=== PATIENT | female | born 2000 | race Caucasian/White ===

== ENCOUNTER 2025-10-06 21:45 | Emergency (ER) | payer SELFPAY ==
[2025-10-06 21:45] VITALS: BP 130/70; PULSE 67; RESP 18; TEMP 36.8; O2SAT 96; BMI 37.3
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
--- NOTE | 2025-10-06 22:03 | CTR_ITS ---
PROCEDURE INFORMATION: Exam: CT Head Without Contrast Exam date and time: 10/06/2025 10:44 PM Age: 25 years old Clinical indication: Condition or disease; Convulsions or seizures; EMS arrival for seizure. History of seizure disorder. TECHNIQUE: Imaging protocol: Computed tomography of the head without contrast. Total images: 289 Radiation optimization: All CT scans at this facility use at least one of these dose optimization techniques: automated exposure control; mA and/or kV adjustment per patient size (includes targeted exams where dose is matched to clinical indication); or iterative reconstruction. COMPARISON: No relevant prior studies available. RADIATION DOSE METRICS: Total DLP (mGy-cm): 1074.38 FINDINGS: Brain: Brain parenchyma demonstrates no unexpected involutional change or volume loss. Deep white matter attenuation is normal for patient of this age. No specific abnormal density within the brain parenchyma. No mass-effect or edema, or pathologic shift of midline structures. No acute intracranial hemorrhage. Satisfactory humphrey-white matter differentiation. Normal anatomy of the posterior fossa, cerebellum, jessica and medulla. Cerebral ventricles: CSF spaces demonstrate mild generalized enlargement of the ventricles, cisterns and other subarachnoid spaces commensurate with patient's age. Paranasal sinuses: Sinus mild mucoperiosteal thickening of the left for posterior visualized portion of maxillary sinus. Sinuses otherwise clear. Mastoid air cells: Visualized mastoid air cells and tympanic cavities are clear. Bones: No intrinsic osseous abnormality identified. Soft tissues: Soft tissues are normal as visualized, demonstrating no masses or swelling/induration. No localized pathologic scalp posttraumatic soft tissue swelling or subcutaneous emphysema. No manifestations of laceration, subcutaneous emphysema or unexpected retained soft tissue radiopaque foreign body. Vasculature: Satisfactory major vessel density and caliber characteristic of flowing intravascular blood. CT/CT head wo con* [id number] IMPRESSION: No acute intracranial abnormalities identified. Specifically no CT evidence of mass, hemorrhage, or acute infarction. COMMENTS: Noncontrast CT has limited sensitivity for early ischemic change or migrainous white matter findings. If clinically indicated, consider MRI brain without contrast.
--- NOTE | 2025-10-06 22:04 | ED_ITS ---
HPI - Seizure 2 General: Chief Complaint: Seizure Stated Complaint: possible seizure Time Seen by Provider: 10/06/25 22:01 History of Present Illness: HPI Narrative: Patient is a 25-year-old female with history of epilepsy, last seizure 3 years ago, that was lost to insurance, no follow-up, presents to the emergency room with tonic-clonic seizure x 15 minutes. She was dazed. She was confused. She does not remember the seizure. She did not have incontinence. She was brought in by EMS. Her hpxlxy-lg-qiq noted tonic-clonic movements, her eyes rolled back of her head, unresponsive, x 15 minutes. At bedside, she was dazed on arrival. Via EMS. She does have establishment by a neurologist however was lost to follow-up due to lack of insurance. Associated symptoms: Reports confusion; Deny chest pain, chills or fever(s) Related Data Previous Rx's ?Medication ?Instructions ?Recorded levetiracetam 1,000 mg tablet 1,000 mg PO Q12H 30 days #60 tabs 10/06/25 (Keppra) Allergies Allergy/AdvReac Type Severity Reaction Status Date / Time morphine Allergy ALGY-Rash Verified 10/06/25 21:51 Review of Systems 2 General: Reports: 10 or more systems reviewed and unremarkable except in HPI and below Const: Denies: fever(s) or chills Eyes: Denies: change in vision or blurry vision ENMT: Denies: throat pain or mouth pain Card: Denies: chest pain or palpitations Resp: Denies: dyspnea or non-productive cough GI: Denies: abdominal pain, nausea or vomiting : Denies: flank pain or dysuria Musc: Denies: neck pain, back pain or extremity pain Neuro: Reports: confusion and seizure-like activity; Denies: weakness in extremities, sensory changes, lack of coordination or dizziness Physical Exam 2 Const: COMMON NORMALS: no acute distress, average body habitus and patient oriented x3 HENMT: COMMON NORMALS: normocephalic and atraumatic HEAD & SCALP: n ormocephalic and atraumatic Chest: COMMONS NORMALS: normal inspection of the chest and normal palpation of entire chest wall Resp: COMMON NORMALS: normal respiratory effort, No retractions, No use of accessory muscles and clear to auscultation bilaterally AUSCULTATION: clear to auscultation bilaterally Cardio: COMMON NORMALS: regular rate and regular rhythm RATE: regular rate RHYTHM: regular rhythm GI: COMMON NORMALS: Normal to inspection, nondistended, normoactive bowel sounds present, Soft to palpation, non-tender and No hepatosplenomegaly present PALPATION: Yes Soft to palpation and Yes No hepatosplenomegaly present : COMMON NORMALS: Yes no CVA tenderness BLADDER/KIDNEY EXAM: Yes no CVA tenderness Back/Pelvis: COMMON NORMALS: no CVA tenderness and thoracic and lumbar spine normal to inspection Extremity: COMMON NORMALS: normal to inspection, full ROM and capillary refill normal Neuro: COMMON NORMALS: patient oriented x3 Psych: COMMON NORMALS: mental status grossly normal, Normal thought process present and cooperative THOUGHT PROCESS: Normal thought process present Course 2 Reevaluation(s): Reevaluation #1: Improved. Vital Signs: Vital signs: Vital Signs Temperature 98.2 F 10/06/25 21:45 Pulse Rate 72 10/06/25 23:41 Respiratory Rate 18 10/06/25 23:41 Blood Pressure 114/53 10/06/25 23:41 Pulse Oximetry 96 10/06/25 23:41 MDM - Seizure MDM Narrative Medical decision making narrative: Patient is a 25-year-old female that reports to the emergency room via EMS due to witnessed seizure activity. She has a history of epilepsy, however did not have her medications due to lack of insurance. Patient was dazed when I first met her, however her neuro was intact. She was loaded on Keppra. Keppra will be sent to the pharmacy. All of her questions answered to her understanding. She has a plan to add be added to her 's insurance on Wednesday. Lab Data 10/06/25 22:21 10/06/25 22:21 Labs: Radiology Impressions Head CT 10/06/25 22:03 IMPRESSION: No acute intracranial abnormalities identified. Specifically no CT evidence of mass, hemorrhage, or acute infarction. COMMENTS: Noncontrast CT has limited sensitivity for early ischemic change or migrainous white matter findings. If clinically indicated, consider MRI brain without contrast. Laboratory Results WBC 8.09 10^3/uL (3.29-11.43) 10/06/25 22:21 RBC 4.23 10^6/uL (3.85-5.65) 10/06/25 22:21 Hgb 13.20 g/dL (11.27-16.99) 10/06/25 22:21 Hct 38.9 % (36-47) 10/06/25 22:21 MCV 92.0 fl (85-98) 10/06/25 22:21 MCH 31.2 pg (27-33) 10/06/25 22:21 MCHC 33.9 g/dL (30-55) 10/06/25 22:21 RDW 11.6 % (12.1-15.1) L 10/06/25 22:21 Plt Count 303 10^3/cmm (157-399) 10/06/25 22:21 MPV 9.5 fL (7.4-10.4) 10/06/25 22:21 Neut % (Auto) 71.5 % 10/06/25 22:21 Lymph % (Auto) 22.0 % 10/06/25 22:21 [place] % (Auto) 5.4 % 10/06/25 22:21 Eos % (Auto) 0.5 % 10/06/25 22:21 Baso % (Auto) 0.4 % 10/06/25 22:21 Neut # (Auto) 5.78 10^3/uL (1.8-7.7) 10/06/25 22:21 Lymph # (Auto) 1.8 10^3/uL (0.8-4.8) 10/06/25 22:21 [place] # (Auto) 0.4 10^3/uL (0.2-0.9) 10/06/25 22:21 Eos # (Auto) 0.0 10^3/uL (0.0-0.8) 10/06/25 22:21 Baso # (Auto) 0.0 10^3/uL (0.0-0.1) 10/06/25:21 Nucleated RBC % (auto) 0 % 10/06/25: Nucleated RBCs # 0.0 /100WBC 10/06/25 22:21 Sodium 138 mmol/L (136-145) 10/06/25 22:21 Potassium 3.7 mmol/L (3.5-5.1) 10/06/25 22:21 Chloride 101 mmol/L (98-107) 10/06/25 22:21 Carbon Dioxide 29 mmol/L (22-29) 10/06/25 22:21 Anion Gap 11.7 (5-19) 10/06/25 22:21 BUN 9 mg/dL (6-20) 10/06/25 22:21 Creatinine 0.7 mg/dL (0.5-0.9) 10/06/25 22:21 GFR Calculation 102.0 mL/min (90-130) 10/06/25 22:21 Glucose 97 mg/dL (65-115) 10/06/25 22:21 Calculated Osmolality 285 mOsm/kg (285-295) 10/06/25 22:21 Lactic Acid 1.2 mmol/L (0.5-2.2) 10/06/25 22:21 Calcium 9.0 mg/dL (8.5-10.5) 10/06/25 22:21 Magnesium 2.1 mg/dL (1.7-2.3) 10/06/25 22:21 Total Bilirubin 0.4 mg/dL (0.15-1.2) 10/06/25 22:21 AST 36 U/L (0-32) H 10/06/25 22:21 ALT 66 U/L (0-33) H 10/06/25 22:21 Alkaline Phosphatase 109 U/L (35-105) H 10/06/25 22:21 Total Protein 6.9 g/dL (6.6-8.7) 10/06/25 22:21 Albumin 4.1 g/dL (3.5-5.2) 10/06/25 22:21 Globulin 2.8 g/dL (1.3-4.6) 10/06/25 22:21 HCG, Qual Negative (Negative) 10/06/25 22:21 Urine Color Yellow (Yellow) 10/06/25: Urine Appearance Clear (CLEAR) 10/06/25: Urine pH 7.0 (5-7) 10/06/25: Ur Specific [place] 1.009 (1.005-1.030) 10/06/25: Urine Protein Negative (Negative) 10/06/25: Urine Glucose (UA) Negative (Normal) 10/06/25 Urine Ketones Negative (Negative) 12/20/25 20:44 Urine Blood Negative (Negative) 10/06/25 20:44 Urine Nitrate Negative (Negative) 10/06/25 20:44 Urine Bilirubin Negative (Negative) 10/06/25 20:44 Urine Urobilinogen 0.2 mg/dL (Negative) 10/06/25 20:44 Ur Leukocyte Esterase Trace (Negative) A 10/06/25 20:44 Urine RBC 0-2 /hpf (0-2) 10/06/25 20:44 Urine WBC 0-5 /hpf (0-5) 10/06/25 20:44 Ur Squamous Epith Cells 0-5 /hpf (0-5) 10/06/25 20:44 Amorphous Sediment Not Reportable 10/06/25 20:44 Urine Bacteria None seen /hpf (NONE) 10/06/25 20:44 Hyaline Casts 0-4 /lpf H 10/06/25 20:44 Urine Opiates Screen Negative ng/mL (Negative) 10/06/25 20:44 Ur Barbiturates Screen Negative ng/mL (Negative) 10/06/25 20:44 Ur Phencyclidine Scrn Negative ng/mL (Negative) 10/06/25 20:44 Ur Amphetamines Screen Negative ng/mL (Negative) 10/06/25 20:44 U Benzodiazepines Scrn Negative ng/mL (Negative) 10/06/25 20:44 Urine Cocaine Screen Negative ng/mL (Negative) 10/06/25 20:44 U Marijuana (THC) Screen Negative ng/mL (Negative) 10/06/25 20:44 All radiology interpretation(s) finalized by discharge Discharge Plan Discharge Patient Disposition: Home Clinical Impression: Epileptic seizure Condition: Stable Prescriptions: New levetiracetam [Keppra] 1,000 mg tablet 1,000 mg PO Q12H 30 Days Qty: 60 0RF Discharge Orders: Discharge ED (Routine); Ordered 10/06/25 Ordered By: Anjali Menendez Discharge Diet: Usual diet Discharge Activity: Resume usual activity Patient Instructions: Epilepsy (ED), Patient Portal & Kym Instructions Activity Restrictions/Additional Instructions: - Per [facility] law: I have to advise you you cannot drive, operate heavy equipment, bathe alone, swim alone, play high-impact sports x 6 months - follow-up with your doctor regarding your seizure today. - Your medications at the pharmacy are therefore 30 days. Your refills will have to go through your doctor. Thank you for choosing [facility] for your healthcare needs today. You have been screened and evaluated and felt safe for discharge. Health conditions do change or evolve sometimes and as such it is important that you follow up with your Primary Doctor to be re checked, 3-5 days is a general good time frame for follow up. You are always welcome to return to the ED for re assessment if your symptoms are worsening or you have new concerns Print Language: Thai Coding Level of Care Code ED Paint Spraying Machine Operator Helper for Gaby Donohue
[2025-10-06 22:14] VITALS: BP 150/77; PULSE 69; RESP 17; O2SAT 97
[2025-10-06 22:29] LABS: Hematocrit 38.9 % (36-47); Hemoglobin 13.20 g/dL (11.27-16.99); Mean Corpuscular HGB Conc 33.9 g/dL (30-55); Mean Corpuscular Hemoglobin 31.2 pg (27-33); Mean Corpuscular Volume 92.0 fl (85-98); Nucleated Red Blood Cells % 0 %; Platelet Count 303 10^3/cmm (157-399); Red Blood Count 4.23 10^6/uL (3.85-5.65); White Blood Count 8.09 10^3/uL (3.29-11.43)
[2025-10-06 22:38] VITALS: BP 97/43; O2SAT 90
[2025-10-06 22:44] LABS: Lactic Sepsis W/Reflex 1.2 mmol/L (0.5-2.2)
[2025-10-06 22:45] LABS: Alanine Aminotransferase 66 U/L (0-33); Albumin Level 4.1 g/dL (3.5-5.2); Alkaline Phosphatase 109 U/L (35-105); Anion Gap 11.7 (5-19); Aspartate Amino Transferase 36 U/L (0-32); Blood Urea Nitrogen 9 mg/dL (6-20); Calcium 9.0 mg/dL (8.5-10.5); Carbon Dioxide 29 mmol/L (22-29); Chloride 101 mmol/L (98-107); Globulin 2.8 g/dL (1.3-4.6); Glucose 97 mg/dL (65-115); HCG, Serum Qual Negative (Negative); Magnesium 2.1 mg/dL (1.7-2.3); Osmolality Calculated 285 mOsm/kg (285-295); Potassium 3.7 mmol/L (3.5-5.1); Sodium 138 mmol/L (136-145); Total Protein 6.9 g/dL (6.6-8.7)
--- NOTE | 2025-10-06 22:46 | PC.NURSE ---
patient does not want to take keppra medication ordered as she says that it does not work for her.
[2025-10-06 22:47] LABS: Glucose Urine UA Negative (Normal); Nitrate Urine Negative (Negative); Specific Gravity, Urine 1.009 (1.005-1.030)
[2025-10-06 22:52] LABS: Add Urine Microscopic? YES
--- NOTE | 2025-10-06 23:22 | PC.NURSE ---
BRITTA talked with patient now and she is now agreeable to katlynra RN will start now
[2025-10-06] MEDS: levETIRAcetam 1,500 MG/100 ML PREMIX 400 MG IV (23:24)
[2025-10-06 23:28] VITALS: BP 118/51; PULSE 63; RESP 18; O2SAT 98
[2025-10-06 23:36] VITALS: BP 122/77; PULSE 68; RESP 17; O2SAT 95
[2025-10-06 23:40] LABS: PCP Screen Urine Negative (Negative)
[2025-10-06 23:41] VITALS: BP 114/53; PULSE 72; RESP 18; O2SAT 96
== END 2025-10-06 23:48 | disposition home or self-care (01) ==
PROVIDERS: Emergency Provider Physician Assistant
DX: G40.909 Epilepsy, unspecified, not intractable, without status epilepticus (principal)
CPT/HCPCS: 36415; 70450; 80053; 80306; 81001; 83605; 83735; 84146; 84703; 85025; 96365; 99285; J1953

== ENCOUNTER 2025-10-15 00:53 | Emergency (ER) | payer SELFPAY ==
[2025-10-15 00:54] VITALS: BP 114/76; PULSE 67; RESP 17; TEMP 36.7; O2SAT 97
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
--- OUTSIDE RECORDS SUMMARY | 2025-10-15 00:56 | XMS_ITS | Encounter Summary ---
Author Organization [facility] Address [address] [place] [address] Care Team Providers Care Crane Crew Supervisor Name Role Phone Unavailable Primary Care Provider Unavailabl e Encounter Details Date Type Department Care Team (Late st Contact Info) Description 10/09/2025 External Device Data [facility] ABSTRACTION Provider, Abstract NO ADDRESS ON FILE Social History Tobacco Use Types Packs/Day Years Used Date Smoking Tobacco: Never Smokeless Tobacco: Never Alcohol Use Standard Drinks/Week Comments Yes 6 (1 standard drink = 0.6 oz pur e alcohol) Feeling Safe Answer Date Recorded Are you in a relationship wi th someone who hurts you emotionally and/or physically? 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
--- NOTE | 2025-10-15 01:14 | W.ED.SEIZURE ---
HPI - Seizure General: Chief Complaint: Seizure Stated Complaint: SEIZURE Time Seen by Provider: 10/15/25 01:05 Source: patient and family () Mode of arrival: EMS Limitations: no limitations History of Present Illness: HPI Narrative: Patient is a 25-year-old female with a history of epilepsy here following a seizure. Patient states she used to follow-up with neurology at [facility] but has not seen them in approximately a year. She was on Zonegran for seizures at one point but has not been on this medication in over a year. Patient was seen here in the ED about a week or so ago for a seizure. She states prior to that she had not had a seizure in over a year. Patient was placed on Keppra but states it was sent to the wrong pharmacy so she has not filled this medication. states seizure today consisted of tonic-clonic movements and a loss of consciousness. No apnea. No incontinence. Patient is slightly postictal upon arrival but answers all of my questions appropriately. MD complaint: seizure Onset (ago): hour(s) Description of Episode: loss of consciousness and tonic-clonic movement -: minutes(s) Witnessed: Yes - by Bystander () Trauma: No Seizure History: Yes Place: Home Possible Precipitating Event: none Associated symptoms: Reports no associated symptoms; Deny chest pain, chills, fever(s), malaise or syncope Treatments prior to arrival: none Related Data Previous Rx's ?Medication ?Instructions ?Recorded levetiracetam 1,000 mg tablet 1,000 mg PO Q12H 30 days #60 tabs 10/15/25 (Keppra) Allergies Allergy/AdvReac Type Severity Reaction Status Date / Time morphine Allergy ALGY-Rash Verified 10/06/25 21:51 Review of Systems Const: Denies: fever(s), chills, body aches, fatigue or malaise Card: Denies: chest pain, palpitations, lightheadedness, syncope or pre-syncope Resp: Denies: dyspnea GI: Denies: abdominal pain, nausea, vomiting or diarrhea : Denies: flank pain, dysuria or hematuria Musc: Denies: neck pain, back pain, extremity pain, extremity swelling, joint pain or joint swelling Skin/Breast: Denies: rash Neuro: Reports: seizure-like activity; Denies: headache(s), numbness in extremities, weakness in extremities or sensory changes Physical Exam Const: COMMON NORMALS: no acute distress, patient oriented x3, no limitations, alert and well nourished GENERAL APPEARANCE: cooperative NUTRITIONAL APPEARANCE: obese ORIENTATION/CONSCIOUSNESS: Yes awake, Yes oriented to person, Yes oriented to place and Yes oriented to time HENMT: COMMON NORMALS: normocephalic and atraumatic HEAD & SCALP: normal to inspection, normocephalic and atraumatic FACE & SINUS: normal facial exam and face symmetric Eye: GENERAL EYE: appearance normal, both eyes and all related structures Resp: COMMON NORMALS: normal respiratory effort and clear to auscultation bilaterally AUSCULTATION: clear to auscultation bilaterally Cardio: COMMON NORMALS: regular rate and regular rhythm RATE: regular rate RHYTHM: regular rhythm GI: COMMON NORMALS: Normal to inspection, nondistended, normoactive bowel sounds present, Soft to palpation and non-tender PALPATION: Yes Soft to palpation Extremity: GENERAL: Yes normal exam except as noted Neuro: COMMON NORMALS: patient oriented x3, moves all extremities, no focal motor deficits and no sensory deficits noted SENSORIUM/ORIENTATION: Yes alert, Yes oriented to person, Yes oriented to place and Yes oriented to time Skin: COMMON NORMALS: no rashes or lesions noted GENERAL SKIN EXAM: no rashes or lesions noted Course Vital Signs: Vital signs: Vital Signs Temperature 98.0 F 10/15/25 00:54 Pulse Rate 67 10/15/25 00:54 Respiratory Rate 17 10/15/25 00:54 Blood Pressure 114/76 10/15/25 00:54 Pulse Oximetry 97 10/15/25 00:54 Oxygen Delivery Me thod Room Air 10/15/25 00:54 MDM - Seizure MDM Narrative Medical decision making narrative: Patient is a 25-year-old female with a history of epilepsy here for an epileptic seizure. She had an extensive ED workup just last week following a seizure which was unremarkable. I do not feel this needs to be repeated today. She has not had any recent injury or trauma. Her vital signs are stable. Patient will be given a loading dose of Keppra and she is requesting her prescription be called into [facility] so she can fill and start on this medication. I will have case management help her follow-up with her neurologist through [facility]. Return ED precautions discussed. No radiology studies performed this visit Discharge Plan Discharge Patient Disposition: Home Clinical Impression: Epileptic seizure Condition: Stable Prescriptions: Continued levetiracetam [Keppra] 1,000 mg tablet 1,000 mg PO Q12H 30 Days Qty: 60 0RF Discharge Orders: Discharge ED (Routine); Ordered 10/15/25 Ordered By: Tonja Stanford Patient Instructions: Epilepsy (DC), Patient Portal & K[facility] Instructions, Seizures Activity Restrictions/Additional Instructions: As we discussed, you were given a loading dose of Keppra prior to discharge. Will call your prescription for Keppra into [facility] as requested. You need to fill this medication and start it immediately. You need to contact your neurology team at [facility] to try to schedule a follow-up appointment as soon as possible. Our case management team will also attempt to help you with this. You may return to the emergency department for any further seizures or any further concerns you may have. Print Language: Bangladeshi Coding Level of Care Code ED Clinical Project Assistant for Gaby Donohue
[2025-10-15] MEDS: levETIRAcetam 1,000 MG/100 ML PREMIX 400 MG IV (01:16)
--- NOTE | 2025-10-16 08:53 | DCPLANNER ---
Referral sent to [facility] neurology
== END 2025-10-15 01:47 | disposition home or self-care (01) ==
PROVIDERS: Emergency Provider Physician Assistant
DX: G40.909 Epilepsy, unspecified, not intractable, without status epilepticus (principal)
CPT/HCPCS: 96365; 99284; J1953